=== PATIENT | male | born 1940 | race Caucasian/White ===

== ENCOUNTER 2023-05-08 10:15 | Outpatient (RCR) | payer MEDICARE, SELFPAY ==
[2023-05-08 10:54] VITALS: BP 112/70; PULSE 72; RESP 16; TEMP 36.9; O2SAT 98
[2023-05-08 12:00] VITALS: BP 112/70; PULSE 72; RESP 18; TEMP 37.1; O2SAT 98
[2023-05-08 12:15] VITALS: BP 106/63; RESP 18; TEMP 36.9; O2SAT 98
[2023-05-08 13:00] VITALS: BP 115/71; RESP 24; TEMP 37.2; O2SAT 96
[2023-05-08 14:00] VITALS: BP 125/75; PULSE 73; RESP 14; RESP 16; TEMP 36.6; O2SAT 97
[2023-05-08 14:35] VITALS: BP 125/71; PULSE 72; RESP 16; TEMP 37.1; O2SAT 97
== END 2023-11-03 23:59 | disposition home or self-care (01) ==
LOC: CCIC 10:15
PROVIDERS: Visit Provider Internal Medicine Hematology & Oncology
DX: C83.18 Mantle cell lymphoma, lymph nodes of multiple sites (principal)
CPT/HCPCS: 36415; 36430; 86850; 86900; 86901; 86922; P9016